=== PATIENT | male | born 1930 | race Caucasian/White ===

== ENCOUNTER 2017-05-17 13:19 | Day surgery (SDC) | payer BC ==
[~2017-05-17] VITALS: Ht 172.7 cm; Wt 70.8 kg
[2017-05-17] VITALS (8 sets, daily range): BP systolic 118–155; BP diastolic 62–78; PULSE 71–79; RESP 16–25; Ht 172.7 cm; Wt 70.8 kg
[2017-05-17] MEDS ORDERED: PANT40TA3 PO (14:02)
[2017-05-17] MEDS ORDERED: SIMV20TA PO (14:03)
[2017-05-17] MEDS ORDERED: APIX5TAB PO (14:04)
[2017-05-17] MEDS ORDERED: METO-335 PO (14:04)
[2017-05-17] MEDS ORDERED: DONE5TAB7 PO (14:05)
[2017-05-17] MEDS ORDERED: TAMS-14 PO (14:05)
[2017-05-17] MEDS ORDERED: DIAZ2TAB3 PO (14:06)
[2017-05-17] MEDS ORDERED: TRAZ150T65 PO (14:07)
[2017-05-17] MEDS ORDERED: ALLO300T2 PO (14:07)
[2017-05-17] MEDS ORDERED: LISI-313 PO (14:07)
[2017-05-17] MEDS ORDERED: CYAN500T46 PO (14:08)
[2017-05-17] MEDS ORDERED: CHOL100062 PO (14:08)
[2017-05-17] MEDS ORDERED: LIDOCAINE 1%/EPI 30 ML INJ ONE ×2 (14:57→16:13)
[2017-05-17] MEDS ORDERED: BUPIVACAINE 0.25% (MPF) 30 ML INJ ONE (16:13)
[2017-05-17] MEDS ORDERED: MIDAZOLAM 1 MG/ML 2 ML INJ ONE (16:17)
[2017-05-17] MEDS ORDERED: OXYCODONE/ACETAMINOPHEN (5/325) TAB PO PRN ×2 (16:30)
[2017-05-17] MEDS ORDERED: ONDANSETRON 4 MG INJ IV PRN (16:30)
[2017-05-17] MEDS ORDERED: DIPHENHYDRAMINE 50 MG INJ IV PRN (16:30)
[2017-05-17] MEDS ORDERED: hydrALAzine 20 MG INJ IV PRN (16:30)
[2017-05-17] MEDS ORDERED: LABETALOL HCL 20MG INJ IV PRN (16:30)
[2017-05-17] MEDS ORDERED: METOCLOPRAMIDE 10 MG INJ IV PRN (16:30)
[2017-05-17] MEDS ORDERED: MEPERIDINE 25 MG INJ IV PRN (16:30)
[2017-05-17] MEDS ORDERED: EPHEDrine SULFATE 50 MG/5 ML SYG IV PRN (16:30)
[2017-05-17] MEDS ORDERED: FENTAnyl 50 MCG/ML VIAL IV PRN ×3 (16:30)
[2017-05-17] MEDS ORDERED: HYDROmorphONE (0.2 MG/ML) 10ML SYG IV PRN ×3 (16:30)
[2017-05-17] MEDS ORDERED: MIDAZOLAM 1 MG/ML 2 ML INJ IV PRN (16:30)
[2017-05-17] MEDS ORDERED: CEFAZOLIN 1 GM INJ ONE (16:46)
--- NOTE | 2017-05-17 17:31 | HPN ---
Date/Time of Note Date/Time of Note DATE: 05/17/17 TIME: 17:31 Interval H&P Admission Note Pt. seen H&P reviewed: No system changes TERE LAUREANO MD May 17, 2017 17:31
--- NOTE | 2017-05-17 17:41 | OPR ---
Date/Time of Note Date/Time of Note DATE: 05/17/17 TIME: 17:32 Operative Report Procedure Date: May 17, 2017 Preoperative Diagnosis Basal cell carcinoma nasal dorsum, right chin. Postoperative Diagnosis Same Operation/Procedure Performed Wide excision of nasal basal cell carcinoma. Wide excision of right chin/facial basal cell carcinoma. Tissue transfer reconstruction of both sites. Rotation of local tissue right chin with total defect and rotated flap and donor site defect under 10 square cm. Interrupted layered closure of nasal wound over 3 cm. Surgeon see signature line Logging Specialist None Anesthesia Type: general Estimated Blood Loss: 0 - 10 ml's Transfusion none Specimen BCC nasal dorsum as well as right chin. Grafts/Implants none Complications none Pt Condition Post Procedure: stable Disposition: PACU Indications Basal cell carcinoma nose and chin. Procedure Description Description of procedure: The patient was identified in the holding area with and daughter. We had a discussion to confirm understanding of all indications risks benefits alternatives and postoperative care associated with the operation. They elected for local with possible IV sedation. The patient signed informed consent was taken to the operating room. The patient was laid supine on the operating room table and IV sedation was achieved without difficulty. The face was prepped and draped in sterile fashion and the nose and chin lesions marked for resection and reconstruction. Local block was performed at both sites with a total of 15 cc of 1% lidocaine with epinephrine mixed with .25 Marcaine. At both sides, sharp excision was performed with 3 mm margins as had been previously outlined. Both specimen were oriented and sent for evaluation of margins via frozen section analysis. Once margins were cleared, layered closure of the nasal defect was planned. Wide undermining was performed superiorly to the glabella and inferiorly to the nasal tip. Vicryl was used to approximate the deep dermal layer of the 3.4 cm defect once SC deformities were resected laterally in both directions. Next, the rotation flap for the chin was planned and incisions made and elevated. Once rotated, the vicryl was used to approximate the deep layer. A small SC deformity was anticipated and resected at the inferior limb. Both sites were then closed in the final layer with running 50 fast absorbing suture. The patient was awakened and taken to the PACU in stable condition. Complications: None. TERE LAUREANO MD May 17, 2017 17:41
== END 2017-05-17 18:09 | disposition home or self-care (01) ==
LOC: SDS 13:19
PROVIDERS: ATTEND Otolaryngology
DX: C44.319 Basal cell carcinoma of skin of other parts of face (principal); I10 Essential (primary) hypertension; E78.5 Hyperlipidemia, unspecified; Z86.73 Personal history of transient ischemic attack (TIA), and cerebral infarction without residual deficits
CPT/HCPCS: 14040; J0690; J2250; 88304